=== PATIENT | male | born 1985 | race Two or more races ===

== ENCOUNTER 2024-06-08 11:21 | Emergency (ER) | payer MEDICAID, SELFPAY ==
[2024-06-08 11:40] VITALS: BP 157/105; PULSE 88; RESP 19; TEMP 37.2; O2SAT 95; BMI 31.6
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
== END 2024-06-08 14:01 | disposition home or self-care (01) ==
PROVIDERS: Emergency Provider Emergency Medicine
DX: S13.4XXA Sprain of ligaments of cervical spine, initial encounter (principal); S29.9XXA Unspecified injury of thorax, initial encounter; V89.2XXA Person injured in unspecified motor-vehicle accident, traffic, initial encounter
CPT/HCPCS: 71250; 72125; 99284